=== PATIENT | female | born 2005 | race Caucasian/White ===

== ENCOUNTER 2025-04-01 16:24 | Emergency (ER) | payer BC, SELFPAY ==
[2025-04-01 16:40] VITALS: BP 113/75; PULSE 63; RESP 16; TEMP 37.4; O2SAT 98; BMI 20.5
--- NOTE | 2025-04-01 16:44 | XR_ITS ---
Examination: Shoulder,left, 3 views Technique: Shoulder AP internal rotation, AP external rotation, Y view shoulder, 3 views Exam date and time :April 01, 2025 1712 hours INDICATIONS: Sudden onset left shoulder pain today FINDINGS: No shoulder fracture or dislocation No calcific tendinitis. No AC joint separation Minor cystic change in the bony glenoid labrum IMPRESSION: No fracture or dislocation
--- NOTE | 2025-04-01 16:44 | XR_ITS ---
Examination: PA lateral chest 2 views TECHNIQUE: Upright PA and lateral chest 2 views Date and time: April 01, 2025 1715 hours INDICATIONS: Sudden onset chest and shoulder pain today FINDINGS: Normal heart size The lungs are clear. The osseous structures including bones of the shoulders are intact as well as thoracic vertebral bodies IMPRESSION: No acute process
--- NOTE | 2025-04-01 16:47 | EDNOTE_ITS ---
<Statement entered by Emani Dodson MD - 04/03/25 18:54> As co-signing physician, I was present and available for consult prn. I concur with the plan and care as documented by the midlevel provider. ED Neck Injury Pain RME/HPI General Chief Complaint: Neck Pain/Injury Stated Complaint: NECK / SCAPULA PAIN X 2 HOURS; SURGERY 2 YEARS AGO Time Seen by Provider: 04/01/25 16:35 Arrival date/time: 04/01/25 16:24 RME / HPI RME / HPI Narrative: 19-year-old female patient came in for evaluation regarding sudden onset of left scapular pain radiating to the neck, described as sharp pain, severity moderate. This been ongoing for the last 3 hours. Severity of symptoms moderate. Patient took meloxicam prior to ER visit. Patient denies any shortness of breath. Patient is worried because 2 years ago she had a labral tear or surgery on the left shoulder. Still playing football according to her. Related Data Previous Rx's ?Medication ?Instructions ?Recorded albuterol sulfate 90 mcg/actuation 2 puff inhalation Q ID #8.5 grams 11/12/22 aerosol inhaler ibuprofen 600 mg tablet 600 mg PO Q8H PRN pain #30 t abs 04/01/25 Allergies Allergy/AdvReac Type Severity Reaction Status Date / Time No Known Allergies Allergy Verified 04/01/25 16:29 Review of Systems Review of Systems Narrative Review of Systems: Review of system reviewed and within normal limits except mentioned in HPI ED Exam Narrative Physical exam: VITAL SIGNS: Reviewed. GENERAL APPEARANCE: Alert and interactive, follows commands, no acute distress, HEAD AND FACE: Non-traumatic. ENT: PERRL, pink conjunctivitis, eyelid no trauma, Mucous membrane moist. NECK: Supple, nontender, no nuchal rigidity. CHEST: No tenderness, no crepitus, no paradoxical movement, no retractions. LUNGS: Clear, well ventilated, symmetric, no rales, no wheezing, no ronchi, no stridor, good breath sounds bilaterally. HEART: Regular rate, regular rhythm, no murmur, no gallops. ABDOMEN: Soft, positive bowel sounds, nondistended, no guarding, nontender, no rebound, no masses, RECTAL: Deferred. GENITAL: Deferred. NEUROLOGICAL: Gross motor function intact sensory function intact, Appropriate for age. MUSCULOSKELETAL: Left scapular tenderness no swelling no masses palpated no rashes noted, no redness, low back nontender, full range of motion. EXTREMITIES: Nontender, full range of motion. SKIN: Color pink, dry, no rash, no lacerations, no abrasions, no contusions. LYMPHATICS: Deferred. Course Quality Measures none Orders Category Date Time Status XR chest 2V Stat Exams 04/01/25 16:44 Completed XR shoulder LT min 2V Stat Exams 04/01/25 16:44 Completed Ketorolac Inj [Toradol Inj] Med 04/01/25 16:44 Discontinued 30 mg IM X1 ONE Vital Signs Vital signs: Vital Signs Temperature 99.3 F 04/01/25 16:40 Pulse Rate 63 04/01/25 16:40 Respiratory Rate 16 04/01/25 16:40 Blood Pressure 113/75 04/01/25 16:40 Pulse Oximetry (%) 98 04/01/25 16:40 Oxygen Delivery Method Room Air 04/01/25 16:40 Neck Pain MDM Narrative MDM Narrative:: 19-year-old female patient came in for evaluation regarding sudden onset of left scapular pain radiating to the neck, described as sharp pain, severity moderate. This been ongoing for the last 3 hours. Severity of symptoms moderate. Patient took meloxicam prior to ER visit. Patient denies any shortness of breath. Patient is worried because 2 years ago she had a labral tear or surgery on the left shoulder. Still playing football according to her. Chest x-ray came back unremarkable. X-ray of the shoulders also came back unremarkable. Results discussed with the patient. Patient received Toradol with significant improvement of symptoms. Patient appears nontoxic and hemodynamically stable .Decision to discharge the patient. The patient/family was given an opportunity to ask questions and understood their discharge instructions. Discharge instructions specifically included follow up provider Patient reports feeling better as well and giving evidence of significant clinical improvement, I believe patient is now a candidate for discharge. Patient data External records reviewed:: None Clinical information provided by:: patient Social determinants that could affect healthcare access:: none Patient has the following chronic illnesses:: None How is presenting disease/condition affected by chronic disease/condition?: no chronic disease Evaluation data The following diagnostics were reviewed and interpreted by me:: radiology exam(s) Lab and/or radiology exams considered but not ordered:: None Interpretation Summary: None Medications / Prescriptions Medications or Prescriptions considered but not ordered:: None Medication administrations:: Medication Administration History Discontinued Medications Ketorolac Tromethamine (Ketorolac Inj 60 Mg/2 Ml Vial) 30 mg IM X1 ONE Stop: 04/01/25 16:45 Last Admin: 04/01/25 16:53 Dose: 30 mg Documented By: Toradol Consultations Consultation(s) initiated? (list below): No Diagnosis Neck Differential Diagnosis: cervical radiculopathy, strain of neck muscle and other ( muscular pain) Most likely diagnosis given after review of the tests above:: Muscular pain Admission Indicated Admission indicated?: not indicated Admission Request Was there a request for admission?: No Disposition Plan Disposition Plan: Discharge Discharge Attestation Discharge Attestation: The patient and all family members were given an opportunity to ask questions and understood the discharge instructions. Discharge instructions specifically effects, indications for sooner follow up or return to the emergency department, and the expected course of current diagnosis. Patient condition: Stable Discharge Plan Plan Patient Disposition: HOME (Self Care) Discharge Disposition comment: Stable Prescriptions/Referrals Prescriptions/Med Rec: New ibuprofen 600 mg tablet 600 mg PO Q8H PRN (Reason: pain) Qty: 30 0RF No Action albuterol sulfate 90 mcg/actuation HFA aerosol inhaler 2 puff inhalation QID Qty: 8.5 0RF Referrals: No Primary/Family,Physician [Primary Care Provider] - In 1 week Problem List Clinical Impression: Muscle pain Patient/Caregiver Discharge Instructions Discharge Activity: activity as tolerated Education Materials: ED Myalgias Additional Instructions: Thank you for the opportunity for serving you today. You are stable for discharged . You are advised to: Follow-up with your PCP in 1 to 2 days Return to ED for worsening of symptoms Increase oral fluids Take [id number] Tylenol or Motrin as needed for pain Print Language: Faroese Stand Alone Forms: [facility]en Award Info., Patient Portal Info Letter RANCHO/MAGALYS Supervising Physician RANCHO/MAGALYS Supervising Physician: Md Ivory
[2025-04-01] MEDS: KETOROLAC INJ 60 MG/2 ML VIAL 30 MG IM (16:53)
== END 2025-04-01 18:25 | disposition home or self-care (01) ==
PROVIDERS: Emergency Provider Family Medicine
DX: M79.18 Myalgia, other site (principal); M25.512 Pain in left shoulder; R07.9 Chest pain, unspecified
CPT/HCPCS: 71046; 73030; 96372; 99283; J1885